=== PATIENT | female | born 1950 | race Asian ===

== ENCOUNTER 2017-07-26 20:58 | Emergency (ER) | payer OTHER ==
[~2017-07-26] VITALS: Ht 152.4 cm; Wt 62.6 kg
[2017-07-26 21:10] VITALS: Ht 152.4 cm; Wt 62.6 kg
[2017-07-26 23:13] VITALS: BP 131/78
== END 2017-07-26 23:13 | disposition home or self-care (01) ==
LOC: ED 20:58
DX: S39.012A Strain of muscle, fascia and tendon of lower back, initial encounter (principal); E11.9 Type 2 diabetes mellitus without complications; I10 Essential (primary) hypertension; W19.XXXA Unspecified fall, initial encounter; Y93.89 Activity, other specified; Y92.89 Other specified places as the place of occurrence of the external cause; Y99.8 Other external cause status
CPT/HCPCS: J1885